=== PATIENT | female | born 1970 | race Caucasian/White ===

== ENCOUNTER 2019-11-27 13:27 | Emergency (ER) | payer MEDICAID, OTHER ==
[~2019-11-27] VITALS: Ht 152.4 cm; Wt 53.5 kg
[2019-11-27 13:33] VITALS: BP 143/78
[2019-11-27] MEDS ORDERED: cefTRIAXone SOD 500 MG VL IM ONE (14:30)
== END 2019-11-27 14:46 | disposition home or self-care (01) ==
LOC: ER 13:27
DX: N39.0 Urinary tract infection, site not specified (principal); N76.0 Acute vaginitis; F17.210 Nicotine dependence, cigarettes, uncomplicated; Z20.2 Contact with and (suspected) exposure to infections with a predominantly sexual mode of transmission
CPT/HCPCS: 81002; 81025; 96372; 99283; J0696